=== PATIENT | female | born 1970 | race Caucasian/White ===

== ENCOUNTER 2016-11-08 09:18 | Emergency (ER) | payer OTHER ==
[~2016-11-08] VITALS: Ht 154.9 cm; Wt 54.5 kg
[~2016-11-08 09:18] MED LIST: FLEXERIL 1010 MG/TAB PO; MEDROL 4MG DOSPA4 MG PO; NAPROSYN500 MG PO; NO HOME MEDICATIONS; NORCO 325 MG-51 TAB PO; TYLENOL 325MG325 MG PO
[2016-11-08] MEDS ORDERED: NORCO 325 MG-51 TAB PO (11:33)
[2016-11-08 12:04] VITALS: BP 141/88; PULSE 72; TEMP 97.1
== END 2016-11-08 11:52 | disposition home or self-care (01) ==
LOC: COL.ER 09:18
DX: S90.31XA Contusion of right foot, initial encounter (principal); S40.011A Contusion of right shoulder, initial encounter; S50.01XA Contusion of right elbow, initial encounter; S70.01XA Contusion of right hip, initial encounter; F17.210 Nicotine dependence, cigarettes, uncomplicated; W10.9XXA Fall (on) (from) unspecified stairs and steps, initial encounter; W17.2XXA Fall into hole, initial encounter; Y92.008 Other place in unspecified non-institutional (private) residence as the place of occurrence of the external cause
CPT/HCPCS: J1170

== ENCOUNTER 2017-01-20 19:36 | Emergency (ER) | payer OTHER ==
[~2017-01-20] VITALS: Ht 152.4 cm; Wt 56.8 kg
[2017-01-20 19:42] VITALS: TEMP 98
[2017-01-20 20:01] LABS: BASO # 0.1 (0.0-0.2); BASO % 0.3 % (0.0-2.0); EOS % 0.3 % (0-4.0); GRAN # 12.1 (1.4-6.5); GRAN % 79.9 % (42.2-75.2); LYMPH # 1.9 (1.2-3.4); LYMPH % 12.6 % (20.0-51.0); MEAN CELL VOLUME 87 fl (80.0-100.0); MEAN CORPUSCULAR HGB CONC 35 g/dl (33.0-37.0); MEAN PLATELET VOLUME 9.3 fl (7.4-10.4); MONO % 6.4 % (1.7-9.3); PLATELET COUNT 325 K/mm3 (130-400); RED BLOOD COUNT 3.85 M/mm3 (4.10-5.30); REDCELL DISTRIBUTION WIDTH-CV 12.9 % (11.5-14.5); WHITE BLOOD COUNT 15.1 K/mm3 (4.8-10.8)
[2017-01-20 20:06] LABS: HEMATOCRIT 33.4 % (37.0-47.0); HEMOGLOBIN 11.6 g/dl (12.5-16.0); MEAN CORPUSCULAR HEMOGLOBIN 30 pg (27.0-31.0)
[2017-01-20 20:12] LABS: ADJUSTED CALCIUM 9.5 mg/dL (8.4-10.2); ALBUMIN 4.4 gm/dL (3.5-5.0); BILIRUBIN,TOTAL 0.9 mg/dL (0.0-1.0); CALCIUM 9.8 mg/dL (8.4-10.2); CREATININE, serum 1.11 mg/dL (0.52-1.25); POTASSIUM 3.7 mmol/L (3.4-5.0); TOTAL PROTEIN 7.6 gm/dL (6.4-8.2)
[2017-01-20 22:57] VITALS: BP 113/73; PULSE 87
== END 2017-01-20 23:00 | disposition home or self-care (01) ==
LOC: COL.ER 19:36
PROVIDERS: Emergency Medicine
DX: S13.4XXA Sprain of ligaments of cervical spine, initial encounter (principal); S16.1XXA Strain of muscle, fascia and tendon at neck level, initial encounter; S23.3XXA Sprain of ligaments of thoracic spine, initial encounter; S29.012A Strain of muscle and tendon of back wall of thorax, initial encounter; S39.012A Strain of muscle, fascia and tendon of lower back, initial encounter; S00.91XA Abrasion of unspecified part of head, initial encounter; S50.311A Abrasion of right elbow, initial encounter; S00.93XA Contusion of unspecified part of head, initial encounter; S50.01XA Contusion of right elbow, initial encounter; Y04.2XXA Assault by strike against or bumped into by another person, initial encounter; Y92.009 Unspecified place in unspecified non-institutional (private) residence as the place of occurrence of the external cause; F17.210 Nicotine dependence, cigarettes, uncomplicated; F41.9 Anxiety disorder, unspecified
CPT/HCPCS: J2060; J7030

== ENCOUNTER 2017-03-05 03:00 | Emergency (ER) | payer OTHER ==
[~2017-03-05] VITALS: Ht 154.9 cm; Wt 53.2 kg
[2017-03-05 03:02] VITALS: TEMP 99
[2017-03-05] MEDS ORDERED: NORCO 325 MG-51 TAB PO (03:25)
[2017-03-05] MEDS ORDERED: ULTRAM 50MG TAB50 MG PO (03:25)
[2017-03-05] MEDS ORDERED: PEN-VEE K500 MG PO (03:25)
[2017-03-05 04:04] VITALS: BP 161/89; PULSE 81
== END 2017-03-05 04:04 | disposition home or self-care (01) ==
LOC: COL.ER 03:00
DX: K04.7 Periapical abscess without sinus (principal); K08.89 Other specified disorders of teeth and supporting structures; F17.210 Nicotine dependence, cigarettes, uncomplicated
CPT/HCPCS: J1170

== ENCOUNTER 2017-07-02 15:35 | Emergency (ER) | payer SELFPAY ==
[~2017-07-02] VITALS: Ht 154.9 cm; Wt 52.3 kg
[~2017-07-02 15:35] MED LIST changes: +PEN-VEE K500 MG PO; +ULTRAM 50MG TAB50 MG PO
[2017-07-02 15:39] VITALS: TEMP 98.6
[2017-07-02] MEDS ORDERED: CEPHALEXIN500 M1 PO (16:16)
[2017-07-02 16:50] VITALS: BP 140/84; PULSE 83
== END 2017-07-02 16:51 | disposition home or self-care (01) ==
LOC: COL.ER 15:35
DX: S91.312A Laceration without foreign body, left foot, initial encounter (principal); F17.210 Nicotine dependence, cigarettes, uncomplicated; Z23 Encounter for immunization; W25.XXXA Contact with sharp glass, initial encounter

== ENCOUNTER 2017-09-26 23:48 | Emergency (ER) | payer SELFPAY ==
[~2017-09-26] VITALS: Ht 154.9 cm; Wt 54.5 kg
[~2017-09-26 23:48] MED LIST changes: +CEPHALEXIN500 M1 PO
[2017-09-26 23:51] VITALS: BP 144/79; TEMP 97.4
[2017-09-27 01:54] VITALS: PULSE 77
== END 2017-09-27 01:55 | disposition home or self-care (01) ==
LOC: COL.ER 23:48
DX: S63.91XA Sprain of unspecified part of right wrist and hand, initial encounter (principal); F17.210 Nicotine dependence, cigarettes, uncomplicated; Z87.39 Personal history of other diseases of the musculoskeletal system and connective tissue; W00.0XXA Fall on same level due to ice and snow, initial encounter

== ENCOUNTER 2018-03-09 22:55 | Emergency (ER) | payer SELFPAY ==
[~2018-03-09] VITALS: Ht 154.9 cm; Wt 54.5 kg
[2018-03-09 23:07] VITALS: BP 172/111; TEMP 98.2
[2018-03-09] MEDS ORDERED: VOLTAREN 75 DR75 MG PO (23:55)
[2018-03-09] MEDS ORDERED: FLEXERIL 1010 MG/TAB PO (23:55)
[2018-03-10 00:35] VITALS: PULSE 66
== END 2018-03-10 00:35 | disposition home or self-care (01) ==
LOC: COL.ER 22:55
DX: M06.9 Rheumatoid arthritis, unspecified (principal)
CPT/HCPCS: J3010

== ENCOUNTER 2019-04-23 18:06 | Emergency (ER) | payer SELFPAY ==
[~2019-04-23] VITALS: Ht 154.9 cm; Wt 56.8 kg
[~2019-04-23 18:06] MED LIST changes: +VOLTAREN 75 DR75 MG PO
[2019-04-23 18:18] VITALS: BP 158/72; TEMP 98.9
[2019-04-23 19:42] VITALS: PULSE 91
== END 2019-04-23 19:42 | disposition home or self-care (01) ==
LOC: COL.ER 18:06
DX: F07.81 Postconcussional syndrome (principal); F17.210 Nicotine dependence, cigarettes, uncomplicated; F12.90 Cannabis use, unspecified, uncomplicated; R40.2412 Glasgow coma scale score 13-15, at arrival to emergency department; Y92.59 Other trade areas as the place of occurrence of the external cause; W22.8XXA Striking against or struck by other objects, initial encounter
CPT/HCPCS: J1200; J1885; J2765

== ENCOUNTER 2021-12-30 18:56 | Emergency (ER) | payer SELFPAY ==
[~2021-12-30] VITALS: Ht 154.9 cm; Wt 56.8 kg
[2021-12-30 19:03] VITALS: TEMP 98
[2021-12-30] MEDS ORDERED: NORCO 325 MG-51 TAB PO (21:28)
[2021-12-30 22:10] VITALS: BP 139/97; PULSE 77
== END 2021-12-30 22:10 | disposition home or self-care (01) ==
LOC: COL.ER 18:56
DX: M54.2 Cervicalgia (principal); R51.9 Headache, unspecified; F17.200 Nicotine dependence, unspecified, uncomplicated; Z86.69 Personal history of other diseases of the nervous system and sense organs
CPT/HCPCS: J0780; J1200; J1885; J7030

== ENCOUNTER 2022-03-31 20:22 | Emergency (ER) | payer SELFPAY ==
[~2022-03-31] VITALS: Ht 154.9 cm; Wt 56.4 kg
[2022-03-31 20:56] VITALS: TEMP 98.1
[2022-03-31] MEDS ORDERED: DOXYCYCLINE 10100 MG PO (22:32)
[2022-03-31 22:50] VITALS: BP 130/81; PULSE 80
== END 2022-03-31 22:50 | disposition home or self-care (01) ==
LOC: COL.ER 20:22
DX: L03.116 Cellulitis of left lower limb (principal); R51.9 Headache, unspecified; Z28.310 Unvaccinated for COVID-19
CPT/HCPCS: J0780; J1100; J1200

== ENCOUNTER → 2022-05-15 | Outpatient (RCR) | payer OTHER ==
[~2022-05-15] MED LIST changes: +DOXYCYCLINE 10100 MG PO
== END ==
LOC: MKS.ESL.PT → WSST 04-01 09:30 → MKS.ESL.PT 04-23 11:00
DX: I69.80 Unspecified sequelae of other cerebrovascular disease (principal)

== ENCOUNTER 2022-07-09 09:45 | Outpatient (RCR) | payer OTHER | END 2022-07-15 | LOC: WSST | DX: I67.1 Cerebral aneurysm, nonruptured (principal); G81.94 Hemiplegia, unspecified affecting left nondominant side ==

== ENCOUNTER 2023-01-02 17:20 | Emergency (ER) | payer OTHER ==
[~2023-01-02] VITALS: Ht 154.9 cm; Wt 54.4 kg
[2023-01-02 17:25] VITALS: TEMP 98.5
[2023-01-02 19:01] LABS: BASO % 0.6 % (0.0-2.0); EOS # 0.2 K/mm3 (0.0-0.7); EOS % 2.4 % (0.0-4.0); GRAN # 2.9 K/mm3 (1.4-6.5); GRAN % 47.2 % (42.2-75.2); HEMATOCRIT 37.1 % (37.0-47.0); HEMOGLOBIN 12.6 g/dl (12.5-16.0); LYMPH # 2.6 K/mm3 (1.2-3.4); LYMPH % 41.7 % (20.0-51.0); MEAN CELL VOLUME 91 fl (80.0-100.0); MEAN CORPUSCULAR HEMOGLOBIN 31 pg (27-31); MEAN CORPUSCULAR HGB CONC 34 g/dl (33.0-37.0); MEAN PLATELET VOLUME 9.1 fl (7.4-10.4); MONO # 0.5 K/mm3 (0.1-0.6); MONO % 7.9 % (1.7-9.3); PLATELET COUNT 261 K/mm3 (130-400); RED BLOOD COUNT 4.09 M/mm3 (4.10-5.30); REDCELL DISTRIBUTION WIDTH-CV 12.5 % (11.5-14.5)
[2023-01-02 19:17] LABS: ALANINE AMINOTRANSFERASE 19 U/L (0-55); ALKALINE PHOSPHATASE 78 U/L (40-150); ANION GAP 10 mmol/L (7-16); AST,SGOT 28 U/L (5-34); BILIRUBIN,TOTAL 0.5 mg/dL (0.2-1.2); BLOOD UREA NITROGEN 14 mg/dL (10-20); CALCIUM 9.3 mg/dL (8.4-10.2); CARBON DIOXIDE 24 mmol/L (22-29); CHLORIDE 109 mmol/L (98-107); GLUCOSE 91 mg/dL (70-99); POTASSIUM 3.8 mmol/L (3.5-4.5); SODIUM 143 mmol/L (136-145); TOTAL PROTEIN 7.1 gm/dL (6.2-8.1)
[2023-01-02 19:24] LABS: TROPONIN-I < 0.010 ng/mL (0.00-0.033)
[2023-01-02] MEDS ORDERED: FLEXERIL 1010 MG/TAB PO (21:00)
[2023-01-02 21:02] VITALS: BP 154/78; PULSE 76
== END 2023-01-02 21:02 | disposition home or self-care (01) ==
LOC: COL.ER 17:20
PROVIDERS: Nurse Practitioner
DX: S09.90XA Unspecified injury of head, initial encounter (principal); M54.2 Cervicalgia; F17.210 Nicotine dependence, cigarettes, uncomplicated; Z28.310 Unvaccinated for COVID-19; W10.9XXA Fall (on) (from) unspecified stairs and steps, initial encounter; W22.8XXA Striking against or struck by other objects, initial encounter

== ENCOUNTER 2023-08-26 13:30 | Outpatient (RCR) | payer OTHER ==
[2023-09-09] MEDS ORDERED: CEPHALEXIN500 M1 PO (21:15)
== END 2023-09-14 | disposition home or self-care (01) ==
LOC: WSST
DX: I72.5 Aneurysm of other precerebral arteries (principal)

== ENCOUNTER 2023-09-09 20:18 | Emergency (ER) | payer OTHER ==
[~2023-09-09] VITALS: Ht 154.9 cm; Wt 54.5 kg
[2023-09-09 20:27] VITALS: TEMP 97.7
[2023-09-09 20:48] LABS: BASO # 0.1 K/mm3 (0.0-0.2); BASO % 0.7 % (0.0-2.0); EOS # 0.2 K/mm3 (0.0-0.7); GRAN % 52.3 % (42.2-75.2); HEMATOCRIT 41.5 % (37.0-47.0); HEMOGLOBIN 14.1 g/dl (12.5-16.0); LYMPH # 3.6 K/mm3 (1.2-3.4); LYMPH % 37.2 % (20.0-51.0); MEAN CELL VOLUME 92 fl (80.0-100.0); MEAN CORPUSCULAR HEMOGLOBIN 31 pg (27-31); MEAN CORPUSCULAR HGB CONC 34 g/dl (33.0-37.0); MEAN PLATELET VOLUME 9.2 fl (7.4-10.4); MONO # 0.7 K/mm3 (0.1-0.6); MONO % 7.6 % (1.7-9.3); PLATELET COUNT 341 K/mm3 (130-400); RED BLOOD COUNT 4.51 M/mm3 (4.10-5.30); REDCELL DISTRIBUTION WIDTH-CV 13.2 % (11.5-14.5)
[2023-09-09 20:54] LABS: INR 0.9 (0.8-3.0)
[2023-09-09 21:10] LABS: ALBUMIN 3.9 gm/dL (3.5-5.0); CALCIUM 10.3 mg/dL (8.4-10.2); CREATININE, serum 0.86 mg/dL (0.57-1.11); POTASSIUM 3.7 mmol/L (3.5-4.5); TOTAL PROTEIN 7.4 gm/dL (6.2-8.1)
[2023-09-09] MEDS ORDERED: CEPHALEXIN500 M1 PO (21:15)
[2023-09-09 21:25] LABS: BILIRUBIN,TOTAL 0.5 mg/dL (0.2-1.2)
[2023-09-09 22:25] VITALS: BP 103/70; PULSE 82
== END 2023-09-09 22:26 | disposition home or self-care (01) ==
LOC: COL.ER 20:18
PROVIDERS: Emergency Medicine
DX: H10.9 Unspecified conjunctivitis (principal)
CPT/HCPCS: J1790